=== PATIENT | male | born 1960 | race Caucasian/White ===

== ENCOUNTER 2018-07-27 23:04 | Inpatient (IN) ==
[2018-07-28] MEDS ORDERED: LORazepam 1 MG Tablet PO PRN (02:41)
[2018-07-28] MEDS ORDERED: Aluminum/Magnesium/Simethacone Susp 30 ML UDC PO PRN (02:41)
[2018-07-28] MEDS: Acetaminophen 325 MG Tablet PO PRN ×2 (05:31→16:07)
--- NOTE | 2018-07-28 14:39 | P.CONIM ---
History of Present Illness Reason for Consult: DM Primary Care Provider: UNKNOWN Chief Complaint: DM History of Present Illness: This is 58/M with h/o DM diagnosed more than 10 years ago admitted at the psych unit for mixed anxiety and depressed mood. Per patient, he has had diabetes for more than 10 years and take metformin religiously 1000 mg daily. He does not know his last hemoglobin A1c. No known complications. He denies any chest pain, shortness of breath, nausea, vomiting , polyuria or diarrhea. No other medical problems No previous surgery Occasional smoker, no significant alcohol use Positive family history of diabetes mellitus in his dad. Review of Systems Review of Systems: all other systems reviewed are negative [facility] Social History Social History Substance History: No History of Abuse Second Hand Smoke Exposure: No Smoking Status: Never smoker How Often Do You Have a Drink Containing Alcohol: Never Recent Travel in [facility] within the Last 8 Weeks: No Recent Out of Country Travel within the Last 8 Weeks: No Immunization History Tetanus Immunization: Unsure Hx Influenza Vaccine This Season: No Medications and Allergies Allergies Allergy/AdvReac Type Severity Reaction Status Date / Time No Known Allergies Allergy Verified 07/28/18 02:28 Home Medications Medication Instructions Recorded Confirmed Type metformin 1,000 mg PO DAILY 07/28/18 07/28/18 History Active Medications: Active Medications Acetaminophen (Tylenol) 650 mg PO Q4H PRN PRN Reason: Pain 1-5 or Temp >101F Last Admin: 07/28/18 05:31 Dose: 650 mg Al Hydrox/Mg Hydrox/Simethicone (Mag-Al Plus Susp Liq) 30 ml PO Q6H PRN PRN Reason: DYSPEPSIA Al Hydroxide/Mg Hydroxide (Milk Of Magnesia Liq) 30 ml PO Q12H PRN PRN Reason: Mild Constipation Diphenhydramine HCl (Benadryl) 50 mg PO HS PRN PRN Reason: INSOMNIA Diphenhydramine HCl (Benadryl Inj) 50 mg IM HS PRN PRN Reason: INSOMNIA Lorazepam (Ativan) 1 mg PO Q6H PRN PRN Reason: MODERATE TO SEVERE ANXIETY Lorazepam (Ativan Inj) 1 mg IM Q6H PRN PRN Reason: MODERATE TO SEVERE ANXIETY Metformin HCl (Glucophage) 1,000 mg PO DAILY [facility] Last Admin: 07/28/18 13:39 Dose: 1,000 mg Nicotine (Habitrol 21 Mg Patch.24 Hr) 1 patch T-DERMAL DAILY [facility] Last Admin: 07/28/18 09:21 Dose: Not Given Physical Exam Vital signs: Vital Signs 07/28/18 02:11 Temperature 98 F Pulse Rate 79 Respiratory Rate 16 Blood Pressure 126/74 Pulse Oximetry 99 Intake & Output 07/27/18 07/28/18 07/28/18 18:59 06:59 18:59 Intake Total 720 / 720 Balance 720 / 720 Weight 85.899 kg Intake: Oral 720 / 720 Other: Weight On Admission 85.899 kg Narrative: Not in distress, well-nourished, looks stated age PERRL, pink conjunctiva without injection, anicteric Nose without bleeding Supple neck Normal rate and regular rhythm, no murmurs gallops or rubs appreciated. Clear to auscultation and symmetric bilaterally, normal respiratory effort. Normal bowel sounds, soft, non-tender, nondistended, no guarding. Extremities without clubbing, cyanosis, or edema. No rash of generalized distribution. Skin is warm and dry. AAO x3, no cranial nerve deficits, moves all 4 extremities, no focal neurologic deficits Assessment and Plan Plan This is a 58-year-old male with history of diabetes mellitus - check CBC, CMP, CK ,Hgba1c. Restart metformin daily. No sliding scale insulin for now. Awaiting hemoglobin A1c, if diabetes is controlled, no further need for sliding scale insulin. Follow lab results, if unremarkable, we will sign off. Blood pressure stable Thank you very much for this consult
--- NOTE | 2018-07-28 14:52 | P.HPPSY ---
Provisional Diagnosis Admission Date: July 28, 2018 01:30 Competence Certification of Person's Competence To Provide Express and Informed Consent I have personally examined Nataliia Cordova, a person being served at [facility] on, July 28, 2018 1449. Express and informed consent means consent voluntarily given in writing, by a competent person, after sufficient explanation and disclosure of the subject matter involved to enable the person to make a knowing and willful decision without any element of force, fraud, deceit, duress, or other form of constraint or coercion. This person is 18 years of age or older, is not now known to be incompetent to consent to treatment with a guardian advocate, and does not have a health care surrogate or proxy currently making medical treatment decisions. I have found this person to be one of the following: [X] Competent to provide express and informed consent, as defined above, for voluntary admission to this facility and is competent to provide express and informed consent for treatment. He/she has the consistent capacity to make well reasoned, willful, and knowing decisions concerning his or her medical or mental health treatment. The person fully and consistently understands the purpose of the admission for examination/placement and is fully capable of personally exercising all rights assured [place] [] Incompetent to provide express and informed consent to voluntary admission, and this is incompetent to provide express and informed consent to treatment. The person must be transferred to involuntary status and a petition for a guardian advocate filed with the Circuit Court. [] Refusing to provide express and informed consent to voluntary admission but is competent to provide express and informed consent for treatment. The person must be discharged or transferred to involuntary status. Form shall be completed within 24 hours of a person's arrival at the receiving facility and filed in the clinical record of each person: 1. Admitted on a voluntary basis 2. Permitted to provide express and informed consent to his/her own treatment 3. Allowed to transfer from involuntary to voluntary status 4. Prior to permitting a person to consent to his or her own treatment after having been previously found incompetent to consent to treatment. History of Present Illness Capacity: Has capacity Chief Complaint: depression History of Present Illness: Patient is a 58-year-old male with no psychiatric history presenting voluntarily to the unit. Per nursing, patient had voiced suicidal statements and it was suggested he be transferred to the psychiatric unit after initially coming in asking for help controlling his blood sugars. Patient denies ever having suicidal thoughts but admits to recent stressors leading to a depressive episode. His mood has been depressed, his energy has been low, he has been sleeping poorly. His main stressor is a recent separation after a 27-year-old marriage. At this time patient denies suicidal or homicidal ideation intent or plan. He is calm and collected and pleasant during the interview. Past psych: Patient denies inpatient/outpatient/medication history. Denies a history of suicide attempts Past medical: Diabetes mellitus Past Famhx: Denies Past Social: Patient has 1 son. Patient is going through her separation. 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 He drinks on occasion. He denies any substance use. - Inpatient Certification I certify that the inpatient services were ordered in accordance with Medicare regulations governing the order. This includes certification that hospital inpatient services are reasonable and necessary and in the case of services not specified as inpatient-only under 42 CFR 419.22(n), that they are appropriately provided as inpatient services in accordance to with the 2-midnight benchmark under 43 CFR 412.3(e) I certify that inpatient psychiatric hospital services are medically necessary. Evaluation and treatment and/or diagnostic testing are expected to improve the patient's condition. The patient needs on a daily basis, active treatment furnished directly by or requiring the supervision of inpatient psychiatric facility personnel. Estimated Total Length of Stay (Days): 3 Plans for Post Hospital Care: Home Review of Systems All other systems reviewed negative except as stated in HPI [facility] - History History Provided By: Patient - Medical History Medical History: Medical History (Last Updated 07/28/18 @ 14:54 by Jacob Bass DO) Diabetes - Tobacco History Second Hand Smoke Exposure: No Smoking Status: Never smoker - Alcohol History How Often Do You Have a Drink Containing Alcohol: Never - Substance Use History Substance History: No History of Abuse - Travel History Recent Travel in the [place] Within the Last 8 Weeks: No Recent Travel Out of the Country Within the Last 8 Weeks: No - Immunization History Tetanus Immunization: Unsure Hx Influenza Vaccine This Season: No Medications and Allergies Active Medications: Active Medications Acetaminophen (Tylenol) 650 mg PO Q4H PRN PRN Reason: Pain 1-5 or Temp >101F Last Admin: 07/28/18 05:31 Dose: 650 mg Al Hydrox/Mg Hydrox/Simethicone (Mag-Al Plus Susp Liq) 30 ml PO Q6H PRN PRN Reason: DYSPEPSIA Al Hydroxide/Mg Hydroxide (Milk Of Magnesia Liq) 30 ml PO Q12H PRN PRN Reason: Mild Constipation Diphenhydramine HCl (Benadryl) 50 mg PO HS PRN PRN Reason: INSOMNIA Diphenhydramine HCl (Benadryl Inj) 50 mg IM HS PRN PRN Reason: INSOMNIA Escitalopram Oxalate (Lexapro) 10 mg PO DAILY [facility] Lorazepam (Ativan) 1 mg PO Q6H PRN PRN Reason: MODERATE TO SEVERE ANXIETY Lorazepam (Ativan Inj) 1 mg IM Q6H PRN PRN Reason: MODERATE TO SEVERE ANXIETY Metformin HCl (Glucophage) 1,000 mg PO DAILY [facility] Last Admin: 07/28/18 13:39 Dose: 1,000 mg Nicotine (Habitrol 21 Mg Patch.24 Hr) 1 patch T-DERMAL DAILY [facility] Last Admin: 07/28/18 09:21 Dose: Not Given Trazodone HCl (Desyrel) [address] [facility] Allergies Allergy/AdvReac Type Severity Reaction Status Date / Time No Known Allergies Allergy Verified 07/28/18 02:28 Home Medications Medication Instructions Recorded Confirmed Type metformin 1,000 mg PO DAILY 07/28/18 07/28/18 History Results - Labs Labs: Laboratory Results - last 24 hr 07/28/18 05:22 POC Glucose 209 H Exam Vital signs: Vital Signs 07/28/18 02:11 Temperature 98 F Pulse Rate 79 Respiratory Rate 16 Blood Pressure 126/74 Pulse Oximetry 99 Intake & Output 07/27/18 07/28/18 07/28/18 18:59 06:59 18:59 Intake Total 720 / 720 Balance 720 / 720 Weight 85.899 kg Intake: Oral 720 / 720 Other: Weight On Admission 85.899 kg Mental Status Examination Appearance: Well dressed/well groomed Consciousness: Alert, Vigilant Motor Activity: Normal gait Speech: Unremarkable Language: Adequate Fund of Knowledge: Adequate Attention and Concentration: Adequate Memory: Unremarkable Mood: Sad Affect: Sad Thought Process & Associations: Intact Thought Content: Appropriate Hallucination Type: None Delusion Type: None Suicidal Ideation: No Suicidal Plan: No Suicidal Intention: No Homicidal Ideation: No Homicidal Plan: No Homicidal Intention: No Insight: Adequate Judgment: Adequate Assessment and Plan - Assessment (1) Adjustment disorder with mixed anxiety and depressed mood Code(s): F43.23 - Adjustment disorder with mixed anxiety and depressed mood Status: Acute - Plan Plan: Patient gives consent for Lexapro and trazodone. May sign voluntary Justification for Continued Inpatient Stay: Patient would decompensate in a less restrictive setting
[2018-07-28 15:41] LABS: Baso % (Auto) 0.3 % (0.0-2.0); Eos # (Auto) 0.1 th/mm3 (0.0-0.4); Eos % (Auto) 1.9 % (0.0-4.0); Hematocrit 36.4 % (39.0-51.0); Hemoglobin 12.7 gm/dL (13.0-17.0); Lymph # (Auto) 1.5 th/mm3 (1.0-4.8); Lymph % (Auto) 24.4 % (9.0-44.0); Mean Corpuscular HGB Conc 34.8 % (32.0-36.0); Mean Corpuscular Hemoglobin 31.7 pg (27.0-34.0); Mean Corpuscular Volume 91.1 fL (80.0-100.0); Mean Platelet Volume 8.5 fL (7.0-11.0); Mono # (Auto) 0.3 th/mm3 (0.0-0.9); Mono % (Auto) 5.3 % (0.0-8.0); Neut # (Auto) 4.2 th/mm3 (1.8-7.7); Neut % (Auto) 68.1 % (16.0-70.0); Platelet Count 280 th/mm3 (150-450); White Blood Count 6.1 th/mm3 (4.0-11.0)
[2018-07-28] MEDS: Escitalopram 10 MG Tablet PO SCH (16:07)
[2018-07-28 18:02] LABS: Carbon Dioxide 29.8 meq/L (21.0-32.0); Potassium 5.1 meq/L (3.5-5.1)
[2018-07-28] MEDS: traZODone 50 MG Tablet PO SCH (20:56)
[2018-07-29] MEDS: Escitalopram 10 MG Tablet PO SCH (09:01)
[2018-07-29 09:52] LABS: Anion Gap 5 meq/L (5-15); Blood Urea Nitrogen 9 mg/dL (7-18); Chloride 101 meq/L (98-107); Glomerular Filtration Rate Greater Than 89 mL/min (>89); Glucose,Random 219 mg/dL (74-106); Potassium 4.6 meq/L (3.5-5.1); Sodium 135 meq/L (136-145)
[2018-07-29 09:53] LABS: Cholesterol 207 mg/dL (120-200); Triglycerides 146 mg/dL (42-150)
[2018-07-29 09:56] LABS: Chol/HDL Ratio 3.72 Ratio; HDL Cholesterol 55.6 mg/dL (40.0-60.0); LDL Cholesterol,Calculated 122 mg/dL (0-99)
--- NOTE | 2018-07-29 10:35 | P.PNPSY ---
Subjective Chief Complaint: depression Remarks: Reviewed electronic record and discussed with nursing staff. Rounded with ECHO Navarro. Patient in common area. Very pleasant. States that he feels so much better since his has slept and taking medications for his diabetes. He just started the Lexapro , endorses no side effects. Denies any suicidal or homicidal ideations. Participating in group activities on the unit. Review of Systems All other systems reviewed negative except as stated in HPI Mental Status Examination Appearance: Well dressed/well groomed Consciousness: Alert, Vigilant Motor Activity: Normal gait Speech: Unremarkable Language: Adequate Fund of Knowledge: Adequate Attention and Concentration: Adequate Memory: Unremarkable Mood: Appropriate Affect: Appropriate Thought Process & Associations: Intact Thought Content: Appropriate Hallucination Type: None Delusion Type: None Suicidal Ideation: No Suicidal Plan: No Suicidal Intention: No Homicidal Ideation: No Homicidal Plan: No Homicidal Intention: No Insight: Adequate Judgment: Adequate Assessment and Plan - Assessment (1) Adjustment disorder with mixed anxiety and depressed mood Code(s): F43.23 - Adjustment disorder with mixed anxiety and depressed mood Status: Acute - Plan Plan: 07/29/18 Continue current treatment plan. 07/28/18 Patient gives consent for Lexapro and trazodone. May sign voluntary Justification for Continued Inpatient Stay: Moving patient to a less restrictive environment may result in his decompensation.
--- NOTE | 2018-07-29 16:59 | P.PNIM ---
Subjective Interval history: Follow up on patient with DM. Patient seen and examined. Patient states he is feeling much better. He says he is being discharged tomorrow. Discussed with patient slight elevations in blood pressure and recommended initiating a low-salt diet. Patient admits that he does eat too much salt. Reviewed patient's A1c and recommended implementing regular exercise program as well as dietary modifications and repeat lab test in 3 months. Patient denies any fever, headache, dizziness, chest pain, shortness of breath, nausea, vomiting or abdominal pain. Discussed with RN, no adverse events noted overnight Physical Exam Vital signs: Vital Signs 07/29/18 05:39 Temperature 98 F Pulse Rate 97 H Respiratory Rate 18 Blood Pressure 145/71 H Pulse Oximetry 97 Intake & Output 07/28/18 07/29/18 07/29/18 18:59 06:59 18:59 Intake Total 1080 / 1080 360 / 360 Balance 1080 / 1080 360 / 360 Intake: Oral 1080 / 1080 360 / 360 Narrative: GENERAL: WDWN male patient, INAD. Awake and alert. Pleasant. SKIN: Warm and dry. HEENT: Atraumatic. Pupils equal and round. No scleral icterus. No nasal discharge. MMM. NECK: Trachea midline. CARDIOVASCULAR: Regular rate and rhythm. No murmur appreciated. RESPIRATORY: No accessory muscle use. Clear to auscultation. Breath sounds equal bilaterally. GASTROINTESTINAL: Abdomen soft, non-tender, nondistended. MUSCULOSKELETAL: Extremities without clubbing, cyanosis, or edema. No obvious deformities. NEUROLOGICAL: Awake and alert. No obvious cranial nerve deficits. Motor grossly within normal limits. Able to move all extremity spontaneously. Normal speech. PSYCHIATRIC: Calm and cooperative. Results Labs CBC & Chem 7: 07/28/18 15:10 07/29/18 09:00 Assessment and Plan (1) Adjustment disorder with mixed anxiety and depressed mood: Code(s): F43.23 - Adjustment disorder with mixed anxiety and depressed mood Status: Acute Plan 58-year-old male with history of diabetes admitted to inpatient psychiatric unit for voicing suicidal statements: Depression Suicidal thoughts -Management per psychiatric team DM A1c 8.0 -blood sugars have been acceptable -No sliding scale insulin needed -Continue on Metformin -recommend repeat A1c in 3mos as outpatient with PCP Elevated BP patient denies dx of HTN -Discussed with patient limiting salt intake which he admits he eats too much of -monitor BP Dyslipidemia -patients ASCVD risk is 15.9% in 10yrs and lifetime risk of 50%. Patient would benefit from initiation of statin therapy. -Will start patient on Lipitor 20mg daily -recommend repeat lipid panel in 3 months as outpatient with PCP DVT prophylaxis -patient is ambulatory Patient appears stable from hospitalist standpoint. [facility] will sign off. Please reconsult if needed. Code Status: FULL Discussed Condition With: patient, nursing staff, Dr. Reese Progress Note: Quality VTE Deep Vein Thrombosis/Pulmonary Embolism Present on Admission: No
[2018-07-29 17:04] LABS: Anion Gap 7 meq/L (5-15); Aspartate Aminotransferase 14 U/L (15-37); Blood Urea Nitrogen 8 mg/dL (7-18); Calcium 8.9 mg/dL (8.5-10.1); Carbon Dioxide 27.3 meq/L (21.0-32.0); Chloride 101 meq/L (98-107); Glomerular Filtration Rate Greater Than 89 mL/min (>89); Glucose,Random 148 mg/dL (74-106); Potassium 4.1 meq/L (3.5-5.1); Sodium 135 meq/L (136-145)
[2018-07-29 17:05] LABS: Alanine Aminotransferase 33 U/L (12-78)
[2018-07-29 17:07] LABS: Alkaline Phosphatase 67 U/L (45-117); Total Protein 8.1 g/dL (6.4-8.2)
[2018-07-29] MEDS: traZODone 50 MG Tablet PO SCH (20:36)
[2018-07-30 06:02] VITALS: BP 135/65; PULSE 73; RESP 17; TEMP 98.8; O2SAT 96
[2018-07-30] MEDS: Escitalopram 10 MG Tablet PO SCH (08:48)
--- NOTE | 2018-07-30 11:52 | P.DSPSY ---
Psychiatry Discharge Summary Inpatient Psychiatric care?: Yes Advance Directives: No Reason for Unknown:: Other Mental Health Advance Directive: No Health Care Proxy: No - Admission Admission Date: July 28, 2018 01:30 Brief History: Patient is a 58-year-old male with no psychiatric history presenting voluntarily to the unit. Per nursing, patient had voiced suicidal statements and it was suggested he be transferred to the psychiatric unit after initially coming in asking for help controlling his blood sugars. Patient denies ever having suicidal thoughts but admits to recent stressors leading to a depressive episode. His mood has been depressed, his energy has been low, he has been sleeping poorly. His main stressor is a recent separation after a 27-year-old marriage. At this time patient denies suicidal or homicidal ideation intent or plan. He is calm and collected and pleasant during the interview. Past psych: Patient denies inpatient/outpatient/medication history. Denies a history of suicide attempts Past medical: Diabetes mellitus Past Famhx: Denies Past Social: Patient has 1 son. Patient is going through her separation. 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 He drinks on occasion. He denies any substance use. Tobacco Use In Past 30 Days: No How Often Do You Have a Drink Containing Alcohol: Never Hospital Course: Course in the hospital: Patient is complained of some issues related to depression motivation and depressed mood. These apparently have cleared over the weekend rather remarkably and present time the patient feels much better. This could very likely be related to his being established on a improved treatment for his type 2 diabetes. At the time of his discharge patient denies any suicidality or serious symptoms of depression. Suicide risk assessment on day of discharge suggest lower than imminent risk from mental illness. Patient is denying suicidal ideation. There is no evidence of impairment in reality construction. We will bolster protective factors by relinking the patient with outpatient psychiatric services. There is no evidence of self-care deficit at time of discharge. There is no evidence to support an involuntary hospitalization therefore discharge order placed per patient's request. - Discharge Discharge Date: 07/30/18 - Discharge Diagnosis (1) Adjustment disorder with mixed anxiety and depressed mood Code(s): F43.23 - Adjustment disorder with mixed anxiety and depressed mood Status: Acute Discharge Disposition: Home - Discharge Instructions Discharge Diet: Diabetic Diet Activities You Can Perform: Regular- No Restrictions - Discharge Time > 30 minutes Mental Status Examination Appearance: Well dressed/well groomed Consciousness: Alert, Vigilant Motor Activity: Normal gait Speech: Unremarkable Language: Adequate Fund of Knowledge: Adequate Attention and Concentration: Adequate Memory: Unremarkable Mood: Appropriate Affect: Appropriate Thought Process & Associations: Intact Thought Content: Appropriate Hallucination Type: None Delusion Type: None Suicidal Ideation: No Suicidal Plan: No Suicidal Intention: No Homicidal Ideation: No Homicidal Plan: No Homicidal Intention: No Insight: Adequate Judgment: Adequate Discharge/Advance Care Plan - Results Vital Signs: Last Vital Signs Temp 98.8 F 07/30/18 06:00 Pulse 73 07/30/18 06:00 Resp 17 07/30/18 06:00 BP 135/65 07/30/18 06:00 Pulse Ox 96 07/30/18 06:00 Lab Results: Abnormal Lab Results 07/28/18 07/29/18 07/29/18 15:10 09:00 16:26 Sodium 135 L Potassium 4.1 Chloride 101 Carbon Dioxide 27.3 Anion Gap 7 BUN 8 Creatinine 0.75 Estimated GFR Greater than 89 Random Glucose 148 H Hemoglobin A1c 8.0 H 8.0 H Calcium 8.9 Total Bilirubin 0.5 AST 14 L ALT 33 Alkaline Phosphatase 67 Total Protein 8.1 Albumin 4.0 Laboratory Results Hemoglobin A1c 8.0 % (4.3-6.0) H 07/29/18 09:00 Triglycerides 146 mg/dL (42-150) 07/29/18 09:00 Cholesterol 207 mg/dL (120-200) H 07/29/18 09:00 LDL Cholesterol, Calc 122 mg/dL (0-99) H 07/29/18 09:00 HDL Cholesterol 55.6 mg/dL (40.0-60.0) 07/29/18 09:00 Summary of Procedures: None Pending Results: None - Medications Number of antipsychotic medications at discharge: 0 - Discharge Care Plan Goals to Promote Your Health: * To prevent worsening of your condition and complications * To maintain your health at the optimal level Directions to Meet Your Goals: Take your medications as prescribed Follow your dietary instruction Follow activity as directed Keep your appointments as scheduled Take your immunizations and boosters as scheduled If your symptoms worsen call your PCP, if no PCP go to Urgent Care Center or Emergency Room For 02/01 questions related to your inpatient stay or results of tests pending at discharge, please contact Dr. José Miguel Thomas MD at Smoking is Dangerous to Your Health. Avoid second hand smoking
== END 2018-07-30 13:15 | disposition home or self-care (01) | DRG 882 ==
LOC: H260 07-28 01:30
PROVIDERS: ADMIT Psychiatry & Neurology Child & Adolescent Psychiatry; ATTEND Psychiatry & Neurology Child & Adolescent Psychiatry
DX: E11.9 Type 2 diabetes mellitus without complications; F43.23 Adjustment disorder with mixed anxiety and depressed mood; Z83.3 Family history of diabetes mellitus; I25.10 Atherosclerotic heart disease of native coronary artery without angina pectoris; R45.851 Suicidal ideations; R03.0 Elevated blood-pressure reading, without diagnosis of hypertension; Z79.84 Long term (current) use of oral hypoglycemic drugs; E78.5 Hyperlipidemia, unspecified; F17.200 Nicotine dependence, unspecified, uncomplicated